=== PATIENT | female | born 1950 | race Two or more races ===

== ENCOUNTER → 2024-11-04 | Outpatient (BNVA) | payer MEDICAID, SELFPAY | END | disposition home or self-care (01) | PROVIDERS: PCP Nurse Practitioner Primary Care; Referring Provider Nurse Practitioner Primary Care; Visit Provider Nurse Practitioner Primary Care | DX: B02.8 Zoster with other complications (principal) | CPT/HCPCS: 99212 ==

== ENCOUNTER → 2024-11-14 | Outpatient (BNVA) | payer MEDICAID, SELFPAY | END | disposition home or self-care (01) | PROVIDERS: PCP Nurse Practitioner Family; Referring Provider Nurse Practitioner Family; Visit Provider Nurse Practitioner Family | DX: Z23 Encounter for immunization (principal) | CPT/HCPCS: 90471; 90686; 99213 ==

== ENCOUNTER → 2024-11-26 | Outpatient (BNVA) | payer MEDICAID, SELFPAY | END | disposition home or self-care (01) | PROVIDERS: PCP Nurse Practitioner Family; Referring Provider Nurse Practitioner Family; Visit Provider Nurse Practitioner Family | DX: G25.2 Other specified forms of tremor (principal); Z71.2 Person consulting for explanation of examination or test findings; H66.90 Otitis media, unspecified, unspecified ear | CPT/HCPCS: 99212; G0463 ==

== ENCOUNTER → 2024-12-16 | Outpatient (BNVA) | payer MEDICAID, SELFPAY | END | disposition home or self-care (01) | PROVIDERS: PCP Nurse Practitioner Family; Referring Provider Nurse Practitioner Family; Visit Provider Nurse Practitioner Family | DX: J44.1 Chronic obstructive pulmonary disease with (acute) exacerbation (principal); J18.9 Pneumonia, unspecified organism | CPT/HCPCS: 94640; 96372; 99213; A4216; J0696; J2919; J7614; A9270 ==

== ENCOUNTER → 2024-12-16 | Outpatient (CLI) | payer MEDICARE, MEDICAID, SELFPAY ==
--- NOTE | 2024-12-16 13:47 | XR_ITS ---
Examination: PA lateral chest 2 views Technique AP lateral chest 2 views Exam date and time: December 16, 2024 1402 hours Exam date and time: Coughing shortness of breath beginning 7 days ago. FINDINGS: Normal heart size Accentuation bronchovascular markings Again noted 15 mm pulmonary nodule left midlung, please see the CT chest report 08/09/2024 No pulmonary edema Prominent osteopenia IMPRESSION: Bronchitis pattern
== END | disposition home or self-care (01) ==
PROVIDERS: PCP Nurse Practitioner Family; Referring Provider Nurse Practitioner Family; Visit Provider Nurse Practitioner Family
DX: J44.1 Chronic obstructive pulmonary disease with (acute) exacerbation (principal)
CPT/HCPCS: 71046

== ENCOUNTER → 2025-01-15 | Outpatient (BNVA) | payer MEDICAID, SELFPAY | END | disposition home or self-care (01) | PROVIDERS: PCP Nurse Practitioner Family; Referring Provider Nurse Practitioner Family; Visit Provider Nurse Practitioner Family | DX: R91.8 Other nonspecific abnormal finding of lung field (principal); R31.9 Hematuria, unspecified; E78.5 Hyperlipidemia, unspecified; I10 Essential (primary) hypertension; E55.9 Vitamin D deficiency, unspecified; E11.9 Type 2 diabetes mellitus without complications | CPT/HCPCS: 81001; 99215 ==

== ENCOUNTER → 2025-01-22 | Outpatient (BNVA) | payer MEDICAID, SELFPAY | END | disposition home or self-care (01) | PROVIDERS: PCP Nurse Practitioner Family; Referring Provider Nurse Practitioner Family; Visit Provider Nurse Practitioner Family | DX: J44.9 Chronic obstructive pulmonary disease, unspecified (principal); E78.5 Hyperlipidemia, unspecified; E11.8 Type 2 diabetes mellitus with unspecified complications; J40 Bronchitis, not specified as acute or chronic; Z71.2 Person consulting for explanation of examination or test findings; I11.0 Hypertensive heart disease with heart failure | CPT/HCPCS: 96372; 99214; A4216; J0696; J2919 ==

== ENCOUNTER → 2025-03-12 | Outpatient (CLI) | payer MEDICARE, MEDICAID, SELFPAY ==
--- NOTE | 2025-03-12 17:00 | XR_ITS ---
Examination: CT chest, without intravenous contrast. Sagittal and coronal 2-D reconstructions. Exam date and time: March 12, 20002024 1655 hrs. Indications: CT chest August 09, 2024 5 mm pulmonary nodule right upper lobe, 6 mm pulmonary nodule right lower lobe, 15 mm pulmonary nodule left lower lobe CTDI:vol (mGy) 12.0 DLP: (mGycm) 440 Technique: Multiple 3.0 mm axial sections of the chest to been obtained. Bone and lung density settings are obtained. Sagittal and coronal 2-D reconstructions have been obtained. Low dose protocols were performed. One or more of the following dose reduction techniques were used; automated exposure control, adjustment of the mA and/or KV according to patient size, use of iterative reconstruction technique. Findings: AP dimension ascending thoracic aorta 4 cm Vein pulmonary artery segment 35 cm No paratracheal tracheobronchial or bronchopulmonary adenopathy Stable bilateral pulmonary nodules including 15 mm pulmonary nodule left lower lobe Dilated bronchi in the lower lobes No focal liver or splenic lesions No gallstones No pancreatic mass No renal or ureteral calculi, no hydronephrosis Impression: Mild aneurysm dilatation ascending aorta Stable bilateral pulmonary nodules including 15 mm pulmonary nodule left lower lobe
== END | disposition home or self-care (01) ==
LOC: SCAT 16:29
PROVIDERS: PCP Nurse Practitioner Family; Referring Provider Nurse Practitioner Family; Visit Provider Nurse Practitioner Family
DX: I71.21 Aneurysm of the ascending aorta, without rupture (principal); R91.8 Other nonspecific abnormal finding of lung field
CPT/HCPCS: 71250

== ENCOUNTER → 2025-04-14 | Outpatient (BNVA) | payer MEDICAID, SELFPAY | END | disposition home or self-care (01) | PROVIDERS: PCP Nurse Practitioner Family; Referring Provider Nurse Practitioner Family; Visit Provider Nurse Practitioner Family | DX: Z48.02 Encounter for removal of sutures (principal); Z23 Encounter for immunization | CPT/HCPCS: 15853; 90471; 99213 ==

== ENCOUNTER → 2025-05-08 | Outpatient (BNVA) | payer MEDICAID, SELFPAY | END | disposition home or self-care (01) | PROVIDERS: PCP Nurse Practitioner Family; Referring Provider Nurse Practitioner Family; Visit Provider Nurse Practitioner Family | DX: Z00.01 Encounter for general adult medical examination with abnormal findings (principal); E11.8 Type 2 diabetes mellitus with unspecified complications; Z13.820 Encounter for screening for osteoporosis; Z23 Encounter for immunization; E66.9 Obesity, unspecified; R91.1 Solitary pulmonary nodule; Z12.11 Encounter for screening for malignant neoplasm of colon; F41.9 Anxiety disorder, unspecified; J44.9 Chronic obstructive pulmonary disease, unspecified; I10 Essential (primary) hypertension; E78.5 Hyperlipidemia, unspecified; Z71.85 Encounter for immunization safety counseling; Z01.118 Encounter for examination of ears and hearing with other abnormal findings; Z80.0 Family history of malignant neoplasm of digestive organs; Z01.810 Encounter for preprocedural cardiovascular examination | CPT/HCPCS: G0009; 90471; 90677; 93005; 99173; 99215 ==

== ENCOUNTER → 2025-06-30 | Outpatient (BNVA) | payer MEDICAID, SELFPAY | END | disposition home or self-care (01) | PROVIDERS: PCP Nurse Practitioner Family; Referring Provider Nurse Practitioner Family; Visit Provider Nurse Practitioner Family | DX: J20.9 Acute bronchitis, unspecified (principal); J44.1 Chronic obstructive pulmonary disease with (acute) exacerbation | CPT/HCPCS: 87811; 94640; 96372; 99213; A4216; J0696; J2919; J7614; A9270 ==

== ENCOUNTER → 2025-07-07 | Outpatient (BNVA) | payer MEDICAID, SELFPAY | END | disposition home or self-care (01) | PROVIDERS: PCP Nurse Practitioner Family; Referring Provider Nurse Practitioner Family; Visit Provider Nurse Practitioner Family | DX: J20.8 Acute bronchitis due to other specified organisms (principal); J44.1 Chronic obstructive pulmonary disease with (acute) exacerbation | CPT/HCPCS: 99213 ==

== ENCOUNTER → 2025-08-06 | Outpatient (BNVA) | payer MEDICAID, SELFPAY | END | disposition home or self-care (01) | PROVIDERS: PCP Nurse Practitioner Family; Referring Provider Nurse Practitioner Family; Visit Provider Nurse Practitioner Family | DX: Z71.2 Person consulting for explanation of examination or test findings (principal); I10 Essential (primary) hypertension; E78.5 Hyperlipidemia, unspecified; Z11.59 Encounter for screening for other viral diseases; E55.9 Vitamin D deficiency, unspecified; E11.9 Type 2 diabetes mellitus without complications; J44.9 Chronic obstructive pulmonary disease, unspecified; R79.89 Other specified abnormal findings of blood chemistry; R80.9 Proteinuria, unspecified | CPT/HCPCS: 99212; G0463 ==

== ENCOUNTER → 2025-08-18 | Outpatient (BNVA) | payer MEDICAID, SELFPAY | END | disposition home or self-care (01) | PROVIDERS: PCP Nurse Practitioner Family; Referring Provider Nurse Practitioner Family; Visit Provider Nurse Practitioner Family | DX: K02.9 Dental caries, unspecified (principal); D50.9 Iron deficiency anemia, unspecified; Z86.19 Personal history of other infectious and parasitic diseases | CPT/HCPCS: 99212; G0463 ==